=== PATIENT | male | born 1980 | race Caucasian/White ===

== ENCOUNTER → 2018-12-20 | Outpatient (CLI) | payer MEDICAID ==
[~2018-12-20] MED LIST: CYCL10TA29 PO; PRED20TA6 PO
--- NOTE | 2018-12-20 15:48 | RADIOLOGY IMAGING REPORT ---
FACILITY: [facility] - [place] PATIENT NAME: Rafael Monsivais : 1980 MR: [id number] V: [id number] EXAM DATE: ORDERING PHYSICIAN: BETTY NUÑEZ TECHNOLOGIST: Location: [facility] Patient: Rafael Monsivais : 1980 Visit/Account:[id number] Date of Sevice: 12/20/2018 EXAMINATION: Left knee series, 3 views 12/20/2018 2:44 PM HISTORY: knee pain COMPARISON: None FINDINGS: Visualized bony structures are intact and anatomically aligned without fracture or other a cute osseous abnormality evident. IMPRESSION: Negative exam. Report Dictated By: Mg Trevino MD at 12/20/2018 3:41 PM Report E-Signed By: Mg Trevino MD at 12/20/2018 3:42 PM WSN:[email or web address]
--- NOTE | 2018-12-20 15:49 | RADIOLOGY IMAGING REPORT ---
FACILITY: [facility] [place] PATIENT NAME: Rafael Monsivais : 1980 MR: [id number] V: [id number] EXAM DATE: ORDERING PHYSICIAN: BETTY NUÑEZ TECHNOLOGIST: Location: [facility] [place] Patient: Rafael Monsivais : 1980 Visit/Account:[id number] Date of Sevice: 12/20/2018 EXAMINATION: Lumbar spine, 3 views 12/20/2018 2:44 PM HISTORY: low back pain COMPARISON: None FINDINGS: 5 nonrib-bearing lumbar vertebral levels. Alignment is normal. Disc height loss at L5-S1. Other intervertebral disc space heights are well-preserved. No substantial degenerative spurring. Pedicles and posterior almost are intact. Unremarkable paraspinous soft tissue contours. COMPRESSION: L5-S1 disc height loss. Otherwise unremarkable lumbar spine. Report Dictated By: Mg Trevino MD at 12/20/2018 3:42 PM Report E-Signed By: Mg Trevino MD at 12/20/2018 3:43 PM WSN:[email or web address]
== END ==
LOC: RAD 14:29
PROVIDERS: ATTEND Internal Medicine
DX: M54.42 Lumbago with sciatica, left side (principal); M25.562 Pain in left knee
CPT/HCPCS: 72100